=== PATIENT | male | born 1950 ===

== ENCOUNTER 2018-07-29 10:35 | Outpatient (CLI) | payer MEDICARE | END 2018-07-29 10:36 | disposition home or self-care (01) | LOC: C.RADIC 10:35 | DX: M19.90 Unspecified osteoarthritis, unspecified site (principal) ==

== ENCOUNTER 2018-09-02 09:00 | Outpatient (CLI) | payer MEDICARE | END 2018-09-02 09:01 | disposition home or self-care (01) | LOC: C.CTH 09:00 | DX: C41.2 Malignant neoplasm of vertebral column (principal) ==